=== PATIENT | female | born 1975 | race Caucasian/White ===

== ENCOUNTER 2020-11-18 15:28 | Emergency (ER) | payer OTHER, SELFPAY ==
--- NOTE | ~2020-11-18 | XR_ITS ---
XR hand RT min 3V DATE: 11/18/2020 15:54 INDICATION: Dropped a tote on top of hand. Pain, especially at fifth digit. TECHNIQUE: 3 views of right hand COMPARISON: None FINDINGS: There is either a very small chip fracture or degenerative ossicle at the medial aspect of the distal interphalangeal joint of the fifth digit. Otherwise no fracture or dislocation, chondrocal cinosis or erosive change is evident. IMPRESSION: Very small chip fracture or degenerative ossicle at the medial aspect of the distal inter phalangeal joint of the fifth digit Reviewed, dictated and finalized at location B. [employer] EDUCATION PROFESSOR IMPRESSION: Very small chip fracture or degenerative ossicle at the medial aspe ct of the distal interphalangeal joint of the fifth digit
--- NOTE | 2020-11-18 15:39 | ED.UPPEXIN ---
HPI - Extremity Injury (Upper) General Chief Complaint: Extremity Injury, Upper Stated Complaint: Right hand injury Time Seen by Provider: 11/18/20 15:57 Source: patient and RN notes reviewed Mode of arrival: ambulatory Limitations: no limitations History of Present Illness HPI narrative: 45 old female presents with multiple complaints. She reports yesterday a storage tote fell on her right hand, causing pain at the fifth digit. She used ice and elevation which improved the swelling. She also reports her and son have tested positive for Covid yesterday, she has had nasal congestion, rhinorrhea, poor appetite, cough, low-grade fever for approximately 6 days, she had a negative rapid Covid test yesterday. complaint: injury to: right and finger Related Data Home Medications Medication Instructions Recorded Confirmed No Home Medications 11/18/20 11/18/20 Allergies Allergy/AdvReac Type Severity Reaction Status Date / Time divalproex sodium Allergy Severe Swelling Verified 11/22/19 17:49 of Lip/Tongue/Throat gabapentin Allergy Severe Swelling Verified 11/22/19 17:49 of Lip/Tongue/Throat cefuroxime Allergy Unknown Rash Verified 11/22/19 17:49 Sulfa (Sulfonamide Allergy Unknown Rash Verified 11/22/19 17:49 Antibiotics) Review of Systems Review of Systems: Narrative: CONSTITUTIONAL: Reports malaise, low-grade fever. Denies chills, sweats EYES: Denies visual changes, redness, or discharge. ENT: Reports rhinorrhea, congestion. Denies sinus pain, otalgia or sore throat. CARDIOVASCULAR: Denies chest pain, palpitations, or edema. RESPIRATORY: Reports cough. Denies dyspnea. GASTROINTESTINAL: Denies abdominal pain, vomiting, diarrhea. Reports nausea SKIN: Denies lacerations, abrasions MUSCULOSKELETAL: Reports pain, swelling to the fifth digit of the right hand NEUROLOGIC: Denies numbness, weakness. Reports headache. All systems reviewed & are unremarkable except as noted in HPI and below PMFSH Past Medical History Medical History (Updated 11/18/20 @ 16:14 by Fatoumata Steel NP) Allergies Anxiety Arthritis Colitis Depression History of IBS Surgical History Surgical History (Updated 07/14/20 @ 13:19 by Yael Morris CMA) Delivery by section H/O adenoidectomy H/O gastric bypass H/O rotator cuff surgery History of appendectomy History of carpal tunnel release History of hip surgery History of tonsillectomy Hx of cholecystectomy Family History Family History (Updated 07/14/20 @ 13:20 by Yael Morris [facility]) Mother COPD (chronic obstructive pulmonary disease) CHF (congestive heart failure) Diabetes mellitus Father Heart problem Hypertension Grandparent Cervical cancer Acute hyperglycemia Acute myocardial infarction Social History Social History (Updated 07/14/20 @ 13:21 by Yael Morris [facility]) Smoking packs per day: 1 Smoking cigarettes per day: 20.0 Years smoked: 30 Smoking pack-years: 30.00 Smoking status: Current every day smoker Tobacco type: cigarettes Alcohol intake: current Drinks per week: 14 Substance use: never Gender identity (if verbalized by the patient): Female Comments At time of signature, agree with nursing past medical, surgical, social and family history. There is no relevant family history pertinent to the presenting complaint Exam Narrative: Exam Narrative: GENERAL: Well-appearing, well-nourished, and in no acute distress. HEAD: Normocephalic EYES: PERRLA, conjunctivae clear ENT: Nares clear, turbinates edematous and erythematous, clear discharge. Mucous membranes moist. TM pearly bennett with dull light reflex bilaterally; no tragal tenderness. Oropharynx erythematous without lesions. Tonsils enlarged and without exudate, no drooling, no hoarseness, no trismus, uvula midline. NECK: Supple. No lymphadenopathy CHEST: Clear to auscultation, breath sounds equal. No wheezing, rhonchi, rales, or stridor
[2020-11-18 15:50] VITALS: BP 128/78; PULSE 93; RESP 16; TEMP 37.4; O2SAT 98
[2020-11-19 17:42] LABS: SARS-CoV-2 RNA PCR Negative
== END 2020-11-18 16:30 | disposition home or self-care (01) ==
PROVIDERS: Emergency Provider Nurse Practitioner; PCP Family Medicine
DX: S62.666A Nondisplaced fracture of distal phalanx of right little finger, initial encounter for closed fracture (principal); W20.8XXA Other cause of strike by thrown, projected or falling object, initial encounter; J06.9 Acute upper respiratory infection, unspecified; Z20.822 Contact with and (suspected) exposure to COVID-19; F17.210 Nicotine dependence, cigarettes, uncomplicated; M19.90 Unspecified osteoarthritis, unspecified site; F41.9 Anxiety disorder, unspecified; F32.9 Major depressive disorder, single episode, unspecified; Z98.84 Bariatric surgery status
CPT/HCPCS: 29130; 73130; 99214; C9803; G0463; U0003

== ENCOUNTER 2021-06-18 14:08 | Outpatient (CLI) | payer OTHER, SELFPAY ==
[2021-06-18 19:58] LABS: Alanine Aminotransferase 52 U/L (4-35); Alkaline Phosphatase 218 U/L (38-126); Anion Gap 8 mmol/L (8-16); Aspartate Amino Transferase 45 U/L (14-36); Bilirubin,Total 0.3 mg/dL (0.2-1.3); Blood Urea Nitrogen 9 mg/dL (7-17); Calcium 9.3 mg/dL (8.4-10.2); Carbon Dioxide 23 mmol/L (22-30); Chloride 104 mmol/L (98-107); Estimated Glomerular Filt Rate > 60; Glucose 93 mg/dL (65-110); Potassium 3.9 mmol/L (3.4-5.0); Sodium 135 mmol/L (137-145)
[2021-06-24 17:52] LABS: ALT 48 U/L (6-29); Alpha-2-Macroglobulin 265 mg/dL (106-279); Apolipoprotein A1 248 mg/dL (101-198); Fibrosis Score 0.17; Fibrosis Stage F0; GGT 447 U/L (3-55); Haptoglobin 142 mg/dL (43-212); Necroinflammat Act Grade A0-A1; Total Bilirubin 0.3 mg/dL (0.2-1.2)
== END 2021-06-18 14:09 | disposition home or self-care (01) ==
PROVIDERS: PCP Family Medicine; Visit Provider Family Medicine
DX: R74.8 Abnormal levels of other serum enzymes (principal); R53.83 Other fatigue
CPT/HCPCS: 36415; 80053; 81596

== ENCOUNTER 2021-07-09 07:49 | Outpatient (CLI) | payer OTHER, SELFPAY ==
--- NOTE | ~2021-07-09 | US_ITS ---
EXAMINATION: US abdomen limited EXAM DATE: 07/09/2021 08:22 INDICATION: RUQ hepatic ultrasound. TECHNIQUE: Multiple grayscale and Doppler images of the abdomen right upper quadrant were obtained (b y a technologist who performed the scan) and subsequently reviewed. There is no prior study for suman richardson. FINDINGS: The pancreatic head and body are normal in appearance. The pancreatic tail is not visualized. The l iver has normal echogenicity and contour. There are no focal liver lesions identified. There is no evidence of intrahepatic biliary duct dilation. Portal venous flow was seen in the hepatopedal, nor mal direction and has normal Doppler waveform. No right-sided hydronephrosis. Common bile duct measures 5 mm, which is normal. The gallbladder fossa is unremarkable. IMPRESSION: 1. Unremarkable abdominal ultrasound exam. Reviewed, dictated and finalized at location A.
[2021-07-09 10:18] LABS: Hepatitis B Surface Antigen Negative (Negative)
[2021-07-09 10:24] LABS: HAV RESULT Negative (Negative); Hepatitis B Core IgM Result Negative (Negative)
[2021-07-09 10:36] LABS: Hepatitis C Virus Antibody Negative (Negative)
== END 2021-07-09 07:50 | disposition home or self-care (01) ==
PROVIDERS: PCP Family Medicine; Visit Provider Family Medicine
DX: R74.8 Abnormal levels of other serum enzymes (principal)
CPT/HCPCS: 36415; 76705; 80074

== ENCOUNTER 2021-07-21 13:34 | Outpatient (CLI) | payer OTHER, SELFPAY | END 2021-07-21 13:35 | disposition home or self-care (01) | PROVIDERS: PCP Family Medicine; Visit Provider Family Medicine | DX: E66.9 Obesity, unspecified (principal) | CPT/HCPCS: 36415; 84443 ==

== ENCOUNTER 2021-09-29 12:14 | Outpatient (CLI) | payer OTHER, SELFPAY ==
--- NOTE | ~2021-09-29 | XR_ITS ---
EXAMINATION: XR chest 2V EXAM DATE: 09/29/2021 15:04 INDICATION: SOB, congestion X 3 weeks. TECHNIQUE: Frontal and lateral projections of the chest obtained and reviewed. There is no prior velia dy for comparison. FINDINGS: Linear right middle lobe and right lower lobe atelectasis. No confluent consolidation, pne umothorax or pleural effusion suspected. Cardiomediastinal silhouette is normal. There are no osseous abnormalities identified. IMPRESSION: Linear right-sided subsegmental atelectasis. Reviewed, dictated and finalized at location B. ACE CHARGER
[2021-09-29 19:07] LABS: NT Pro B Type Natriuretic Pept 105 pg/mL (5-100)
== END 2021-09-29 12:15 | disposition home or self-care (01) ==
LOC: ANHBWCLAB 12:16
PROVIDERS: PCP Family Medicine; Visit Provider Family Medicine
DX: R06.02 Shortness of breath (principal); R60.9 Edema, unspecified; R74.8 Abnormal levels of other serum enzymes; R91.8 Other nonspecific abnormal finding of lung field
CPT/HCPCS: 36415; 71046; 83880; 84443

== ENCOUNTER 2022-01-20 11:14 | Outpatient (CLI) | payer OTHER, SELFPAY ==
[2022-01-20 17:59] LABS: Hematocrit 43.7 % (37.0-47.0); Hemoglobin 13.9 g/dL (12.0-15.0); Mean Corpuscular HGB Conc 31.8 g/dl (32-36); Mean Corpuscular Hemoglobin 30.9 pg (26-34); Mean Corpuscular Volume 97.1 fl (80-100); Mean Platelet Volume 10.6 fl (7.4-10.4); Platelet Count Result 312 k/mm3 (150-375); Red Cell Distribution Width 15.4 % (11.5-14.5); White Blood Count 9.1 K/mm3 (4.5-10.0)
[2022-01-20 18:29] LABS: Alanine Aminotransferase 16 U/L (4-35); Albumin Level 3.6 g/dL (3.5-5.1); Alkaline Phosphatase 123 U/L (38-126); Anion Gap 5 mmol/L (8-16); Aspartate Amino Transferase 27 U/L (14-36); Bilirubin,Total 0.6 mg/dL (0.2-1.3); Blood Urea Nitrogen 13 mg/dL (7-17); Calcium 8.8 mg/dL (8.4-10.2); Carbon Dioxide 26 mmol/L (22-30); Chloride 104 mmol/L (98-107); Cholesterol 155 mg/dL (0-200); Estimated Glomerular Filt Rate > 60; Glucose 97 mg/dL (65-110); HDL Direct 63 mg/dL; Potassium 4.6 mmol/L (3.4-5.0); Sodium 135 mmol/L (137-145); Triglycerides 91 mg/dL (<150)
[2022-01-20 18:40] LABS: LDL Cholesterol Direct 77 mg/dL
[2022-01-20 20:00] LABS: Hemoglobin A1C 5.4 % (<5.7)
[2022-01-28 14:32] LABS: ALT 11 U/L (6-29); Alpha-2-Macroglobulin 218 mg/dL (106-279); Apolipoprotein A1 179 mg/dL (101-198); Fibrosis Score 0.16; Fibrosis Stage F0; GGT 79 U/L (3-55); Haptoglobin 126 mg/dL (43-212); Necroinflammat Act Grade A0; Total Bilirubin 0.4 mg/dL (0.2-1.2)
== END 2022-01-20 11:15 | disposition home or self-care (01) ==
PROVIDERS: PCP Family Medicine; Visit Provider Family Medicine
DX: F32.9 Major depressive disorder, single episode, unspecified (principal); F41.9 Anxiety disorder, unspecified; F43.20 Adjustment disorder, unspecified; R74.8 Abnormal levels of other serum enzymes
CPT/HCPCS: 36415; 80053; 80061; 81596; 82248; 83036; 84443; 85027

== ENCOUNTER 2023-03-03 14:34 | Outpatient (CLI) | payer OTHER, SELFPAY ==
[2023-03-03 19:25] LABS: Basophils Absolute Auto 0.1 K/mm3 (0.0-0.1); Basophils Percent Auto 1.5 % (0.2-1.2); Eosinophils Absolute Auto 0.1 K/mm3 (0-0.3); Eosinophils Percent Auto 1.2 % (0-4.4); Hematocrit 36.9 % (37.0-47.0); Hemoglobin 11.3 g/dL (12.0-15.0); Immature Granulocyte Absolute 0.03 K/mm3 (0.00-0.031); Immature Granulocyte Percent A 0.4 % (0-0.5); Lymphocytes Absolute Auto 2.42 K/mm3 (0.9-3.2); Lymphocytes Percent Auto 29.8 % (18.3-44.2); Mean Corpuscular HGB Conc 30.6 g/dl (32-36); Mean Corpuscular Hemoglobin 27.8 pg (26-34); Mean Corpuscular Volume 90.7 fl (80-100); Mean Platelet Volume 9.2 fl (7.4-10.4); Monocytes Absolute Auto 0.9 K/mm3 (0.1-0.6); Monocytes Percent Auto 10.9 % (2.6-8.5); Neutrophils Absolute Auto 4.6 K/mm3 (1.3-6.7); Neutrophils Percent Auto 56.2 % (45.5-73.1); Platelet Count Result 495 k/mm3 (150-375); Red Blood Count 4.07 M/mm3 (4.2-5.4); Red Cell Distribution Width 16.6 % (11.5-14.5); White Blood Count 8.1 K/mm3 (4.5-10.0)
[2023-03-03 19:42] LABS: Alanine Aminotransferase 16 U/L (6-35); Albumin Level 3.3 g/dL (3.5-5.1); Alkaline Phosphatase 239 U/L (38-126); Anion Gap 2 mmol/L (8-16); Aspartate Amino Transferase 128 U/L (14-36); Bilirubin,Total 0.5 mg/dL (0.2-1.3); Blood Urea Nitrogen 11 mg/dL (7-17); Calcium 8.4 mg/dL (8.4-10.2); Carbon Dioxide 31 mmol/L (22-30); Chloride 105 mmol/L (98-107); Cholesterol 135 mg/dL (0-200); Estimated Glomerular Filt Rate > 60; Glucose 68 mg/dL (65-110); HDL Direct 44 mg/dL; Potassium 3.5 mmol/L (3.4-5.0); Sodium 138 mmol/L (137-145); Triglycerides 120 mg/dL (<150)
[2023-03-03 19:53] LABS: LDL Cholesterol Direct 53 mg/dL
[2023-03-03 19:56] LABS: Iron 38 ug/dL (37-170)
[2023-03-03 20:05] LABS: Percent Iron Saturation 15 % (20-50)
[2023-03-03 20:50] LABS: Appearance Urine Cloudy (Clear); Bacteria Urine 1+ /hpf; Bilirubin Urine Negative (Negative); Color Urine Yellow (Yellow); Glucose Urine UA Negative (Negative); Ketones Urine Negative (Negative); Leukocyte Esterase Ur 1+ LEU/UL (Negative); Need Manual Microscopic Reviewed; Nitrate Urine Negative (Negative); Protein Urine 1+ mg/dL (Negative); Specific Grav Ur 1.021 (1.001-1.035); Squamous Epithelial Cell Urine Moderate /hpf (Few); Urobilinogen Urine 0.2 mg/dL (<2.0); WBC Urine 51-100 /hpf; pH Urine 5.5 (5.0-9.0)
[2023-03-03 20:53] LABS: Add Urine Microscopic? YES
== END 2023-03-03 14:35 | disposition home or self-care (01) ==
LOC: ANHBWCLAB 14:36
PROVIDERS: PCP Family Medicine; Visit Provider Nurse Practitioner Family
DX: R31.9 Hematuria, unspecified (principal); E66.9 Obesity, unspecified; F10.10 Alcohol abuse, uncomplicated; F17.200 Nicotine dependence, unspecified, uncomplicated; F32.9 Major depressive disorder, single episode, unspecified; F41.9 Anxiety disorder, unspecified; G25.81 Restless legs syndrome; G47.00 Insomnia, unspecified; G47.33 Obstructive sleep apnea (adult) (pediatric); R01.1 Cardiac murmur, unspecified; K21.9 Gastro-esophageal reflux disease without esophagitis; M54.50 Low back pain, unspecified; R06.02 Shortness of breath; R53.83 Other fatigue; R60.9 Edema, unspecified; Z00.00 Encounter for general adult medical examination without abnormal findings
CPT/HCPCS: 36415; 80053; 80061; 81001; 82607; 83540; 83550; 85025; 87086; 87088

== ENCOUNTER 2023-10-13 11:32 | Outpatient (CLI) | payer OTHER, SELFPAY ==
[2023-10-13 19:16] LABS: Basophils Percent Auto 0.4 % (0.2-1.2); Eosinophils Absolute Auto 0.1 K/mm3 (0-0.3); Eosinophils Percent Auto 0.9 % (0-4.4); Hematocrit 38.2 % (37.0-47.0); Hemoglobin 12.1 g/dL (12.0-15.0); Immature Granulocyte Absolute 0.03 K/mm3 (0.00-0.031); Immature Granulocyte Percent A 0.3 % (0-0.5); Lymphocytes Percent Auto 37.7 % (18.3-44.2); Mean Corpuscular HGB Conc 31.7 g/dl (32-36); Mean Corpuscular Hemoglobin 28.9 pg (26-34); Mean Corpuscular Volume 91.4 fl (80-100); Mean Platelet Volume 10.7 fl (7.4-10.4); Monocytes Absolute Auto 0.7 K/mm3 (0.1-0.6); Monocytes Percent Auto 7.9 % (2.6-8.5); Neutrophils Absolute Auto 4.8 K/mm3 (1.3-6.7); Neutrophils Percent Auto 52.8 % (45.5-73.1); Platelet Count Result 278 k/mm3 (150-375); Red Blood Count 4.18 M/mm3 (4.2-5.4); Red Cell Distribution Width 13.7 % (11.5-14.5)
[2023-10-13 19:53] LABS: Alanine Aminotransferase 19 U/L (6-35); Albumin Level 3.5 g/dL (3.5-5.1); Alkaline Phosphatase 123 U/L (38-126); Anion Gap 6 mmol/L (8-16); Aspartate Amino Transferase 56 U/L (14-36); Bilirubin,Total 0.4 mg/dL (0.2-1.3); Blood Urea Nitrogen 20 mg/dL (7-17); Calcium 8.7 mg/dL (8.4-10.2); Carbon Dioxide 30 mmol/L (22-30); Chloride 104 mmol/L (98-107); Cholesterol 165 mg/dL (0-200); Estimated Glomerular Filt Rate > 60; Glucose 81 mg/dL (65-110); HDL Direct 59 mg/dL; Potassium 3.4 mmol/L (3.4-5.0); Sodium 140 mmol/L (137-145); Triglycerides 127 mg/dL (<150)
[2023-10-13 20:05] LABS: LDL Cholesterol Direct 81 mg/dL
== END 2023-10-13 11:33 | disposition home or self-care (01) ==
PROVIDERS: PCP Nurse Practitioner Adult Health; Visit Provider Nurse Practitioner Adult Health
DX: R74.8 Abnormal levels of other serum enzymes (principal); I10 Essential (primary) hypertension; F10.10 Alcohol abuse, uncomplicated
CPT/HCPCS: 36415; 80048; 80061; 80076; 82607; 82746; 84443; 85025